=== PATIENT | male | born 1990 | race Caucasian/White ===

== ENCOUNTER 2017-10-09 05:57 | Emergency (ER) | payer OTHER ==
[2017-10-09 06:17] VITALS: BP 141/80; PULSE 98; O2SAT 98
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
[2017-10-09] MEDS ORDERED: NORCO 5/325 MG PO ONE (06:34)
[2017-10-09] MEDS ORDERED: NORCO 5/325 MG ONE (06:40)
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
== END 2017-10-09 06:51 | disposition home or self-care (01) ==
LOC: ED 05:57
PROC: 2W3DX1Z Immobilization of Left Lower Arm using Splint (ICD-10-PCS; principal; 2017-10-09)
DX: S62.305A Unspecified fracture of fourth metacarpal bone, left hand, initial encounter for closed fracture (principal); W17.89XA Other fall from one level to another, initial encounter
CPT/HCPCS: 29126; 73130; 99283; A9270-GY